=== PATIENT | female | born 1995 | race Caucasian/White ===

== ENCOUNTER 2016-08-19 11:20 | Emergency (ER) | payer BC, OTHER ==
[2016-08-19 11:28] VITALS: BP 135/80; PULSE 72; TEMP 97.8; BMI 23.3
[2016-08-19] MEDS ORDERED: SILVER SULFADIAZINE 1% TOP CREAM 50 GM JAR TP ONE (12:33)
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
== END 2016-08-19 12:57 | disposition home or self-care (01) ==
LOC: JERFT 11:20
PROC: 2W29X4Z Dressing of Left Upper Extremity using Bandage (ICD-10-PCS; principal; 2016-08-19)
DX: T23.272A Burn of second degree of left wrist, initial encounter (principal); V47.0XXA Car driver injured in collision with fixed or stationary object in nontraffic accident, initial encounter; W22.11XA Striking against or struck by driver side automobile airbag, initial encounter; Y92.412 Parkway as the place of occurrence of the external cause; Y93.89 Activity, other specified; Y99.8 Other external cause status
CPT/HCPCS: 99281-25